=== PATIENT | female | born 1995 | race Caucasian/White ===

== ENCOUNTER 2024-06-11 17:25 | Emergency (ER) | payer OTHER, SELFPAY ==
[2024-06-11 17:26] VITALS: BP 131/105
--- NOTE | 2024-06-11 18:08 | ED.MUSCINJ ---
HPI-Injury
General
Chief Complaint: Musculo-Skeletal Complaint
Source: patient
Exam Limitations: none
Time Seen by Provider: 06/11/24 18:07
Nursing documentation reviewed up to this point in time: agreed with
History of Present Illness-Injury
Initial Injury comments:
29-year-old female was walking her dog the dog pulled the leash and banged the right hand and wrist areas on the door frame at home within the past 2 hours
Past History
Past History
ED Past Medical History: None
ED Past Surgical History: Orthopedic
Social History
Tobacco: Non-smoker
Alcohol: Occasional
Review of Systems
Review of Systems
Allergies reviewed?: Yes
All Other Systems: ROS reviewed and negative except as documented in HPI and ROS
Musculoskeletal: Reports other (Pain right hand)
Phy Exam
Physical Exam
Physical Exam:
PHYSICAL EXAMINATION:
General: no apparent distress, not acutely ill
Neuro: alert and oriented.
Psychiatric: well kept. interactive and cooperative
Musculoskeletal: Right hand with tenderness and swelling base of thumb and ulnar aspect of wrist. Distal neurovascular intact. Mildly limited range of motion due to swelling. Moves with ease
Skin: Warm, pink.
Injury Course
Orders/Labs/Results
Orders:
Orders
06/11/24 17:31
CR Hand - Right 2 Views Urgent
Comment:
Reason For Exam: pain
CR Wrist - Right Min 3 Views Urgent
Comment:
Reason For Exam: pain
06/11/24 18:07
Abdirashid Wrap Right-Treatment ONCE
MDM/Problems Addressed
Differential Diagnosis Includes:
Contusion versus fracture
MDM/Problems Addressed:
29-year-old female was walking her dog the dog pulled the leash and banged the right hand and wrist areas on the door frame at home within the past 2 hours
X-ray right hand negative
X-ray right wrist negative
Abdirashid wrap applied
*Critical Care Note
Total Time (30-74mins, 75-104mins- exclusive of procedures): Not Applicable
ED Attending Note
-
Portions of this chart may have been created with voice recognition software.� Occasional wrong word or��sound alike� substitutions may have occurred due to the inherent limitations of voice recognition software.
Discharge Plan
Departure
Patient Disposition: Home (Routine Discharge)
Date of Disposition: 06/11/24
Time of Disposition: 18:10
Patient with high blood pressure during this ER visit?: No
Condition: Good
Discharge Problem:
Contusion of hand, right
Instructions: Contusion (DC), Using Cold for Pain
Referrals:
Raleigh Trevino MD [Active] - As needed
Activity Restrictions/Additional Instructions:
As we discussed, your x-rays show nothing is broken.
Cold compress to the area 20 minutes off and on today and tomorrow is much as you can to reduce swelling
Wear the Abdirashid wrap for up to 3 days as needed for comfort, support, swelling
See the orthopedic doctor if your hand is not a lot better in 1 week or not 100% better in 3 weeks
Tylenol or ibuprofen as needed for pain.
Interventions
Interventions:
*Risk Screen - Suicide Last Done: 06/11/24 17:26
*General Assessment Last Done: 06/11/24 17:26
*Neglect/Abuse Screening Last Done: 06/11/24 17:26
Discharge Date and Time
Print Language: LITHUANIAN
== END 2024-06-11 19:05 | disposition home or self-care (01) ==
LOC: EMR 17:25
PROVIDERS: EMERGENCY PHYSICIAN Emergency Medicine; FAMILY PHYSICIAN Internal Medicine
DX: S60.221A Contusion of right hand, initial encounter (principal); W22.09XA Striking against other stationary object, initial encounter; Y93.K1 Activity, walking an animal; F41.9 Anxiety disorder, unspecified; Z88.1 Allergy status to other antibiotic agents
CPT/HCPCS: 99283; 73110; 73120